=== PATIENT | female | born 1975 | race Caucasian/White ===

== ENCOUNTER 2019-04-12 16:01 | Emergency (ER) | payer SELFPAY ==
--- NOTE | 2019-04-12 16:34 | NUR ---
CALLED TO TRIAGE NO ANSWER
--- NOTE | 2019-04-12 16:43 | NUR ---
CALLED TO TRIAGE NO ANSWER
== END 2019-04-12 16:50 | disposition home or self-care (01) ==
LOC: ER 16:03
DX: Z53.21 Procedure and treatment not carried out due to patient leaving prior to being seen by health care provider (principal)